=== PATIENT | female | born 1940 | race Caucasian/White ===

== ENCOUNTER → 2018-10-03 | Outpatient (CLI) | payer MEDICARE, BC ==
--- NOTE | 2018-10-03 13:13 | US ---
EXAMINATION TYPE: US carotid duplex BILAT DATE OF EXAM: 10/03/2018 COMPARISON: NONE CLINICAL HISTORY: I10 Hypertension. Lightheadedness x 40 years, TIA 2003 EXAM MEASUREMENTS: RIGHT: Peak Systolic Velocity (PSV) cm/sec ----- Right CCA: 44.7 ----- Right ICA: 110.8 ----- Right ECA: 40.7 ICA/CCA ratio: 2.5 RIGHT: End Diastole cm/sec ----- Right CCA: 12.1 ----- Right ICA: 40.3 ----- Right ECA: 5.8 LEFT: Peak Systolic Velocity (PSV) cm/sec ----- Left CCA: 53.5 ----- Left ICA: 64.3 ----- Left ECA: 102.1 mid ICA/CCA ratio: 1.2 LEFT: End Diastole cm/sec ----- Left CCA: 20.5 ----- Left ICA: 28.5 ----- Left ECA: 12.4 VERTEBRALS (direction of flow): Right Vertebral: Antegrade Left Vertebral: Antegrade Rhythm: Normal Moderate, mixed wall plaque is noted at bilateral carotid bifurcation, but PSV is wnl bilaterally. To rtuous proximal CCA is noted bilaterally. Incidental finding of left thyroid nodule is noted and nodule size = 2.3 x 1.7 x 1.6cm. Flores scale images show moderate to severe plaque eccentrically of bilateral carotid bulb level, right greater than left. The peak systolic velocity measurement within normal limits in right internal car otid artery but there is abnormal ratio with increased end diastolic velocity. IMPRESSION: 1. Moderate to severe plaque bilaterally, right greater than left, cannot exclude hemodynamically si gnificant stenosis 50-69% on the right. Consider CTA or MRA of the neck to further evaluate. 2. Incidental greater than 1 cm solid left thyroid nodule. Advise dedicated thyroid ultrasound to com pletely evaluate and characterize if this is not known finding. Criteria for Assigning % of Stenosis / Diameter reduction (Estimation based on the indirect measurements of the internal carotid artery velocities (ICA PSV). 1. Normal (no stenosis)=ICA PSV < 125 cm/s: ratio < 2.0: ICA EDV<40 cm/s. 2. Less than 50% stenosis=ICA PSV < 125 cm/s: ratio < 2.0: ICA EDV<40 cm/s. 3. 50 to 69% stenosis=ICA PSV of 125 to 230 cm/s: ration 2.0 ? 4.0: ICA EDV 40-100 cm/s. 4. Greater than 70% stenosis to near occlusion= ICA PSV > 230 cm/s: ratio > 4.0: ICA EDV > 100 cm/s. 5. Near occlusion= ICA PSV velocities may be low or undetectable: variable ratio and ICA EDV. 6. Total occlusion=unable to detect flow.
--- NOTE | 2018-10-03 14:38 | MM ---
Reason for exam: screening (asymptomatic). Last mammogram was performed 1 year and 6 months ago. History: Benign excisional biopsy of the left breast, 1988. Physical Findings: A clinical breast exam by your physician is recommended on an annual basis and results should be correlated with mammographic findings. MG 3D Screening Mammo W/Cad Bilateral CC and MLO view(s) were taken. Prior study comparison: March 28, 2017, mammogram. February 08, 2016, mammogram. There are scattered fibroglandular densities. There are benign appearing round vascular dystrophic calcifications bilaterally. There is chronic nodularity in the left breast. There is no discrete abnormality. ASSESSMENT: Benign, BI-RAD 2 RECOMMENDATION: Routine screening mammogram of both breasts in 1 year.
== END | disposition home or self-care (01) ==
LOC: RADMAMWWP 10:40
PROVIDERS: ATTEND General Practice
DX: Z12.31 Encounter for screening mammogram for malignant neoplasm of breast (principal); I65.23 Occlusion and stenosis of bilateral carotid arteries; I10 Essential (primary) hypertension
CPT/HCPCS: 77063; 77067; 93880

== ENCOUNTER → 2018-11-15 | Outpatient (CLI) | payer MEDICARE, BC ==
--- NOTE | 2018-11-15 11:01 | US ---
EXAMINATION TYPE: US thyroid st tissue head/neck DATE OF EXAM: 11/15/2018 COMPARISON: NONE CLINICAL HISTORY: E04.1 Thyroid Nodule. nodule seen on recent carotid exam GLAND SIZE: Right Lobe: 3.7 x 1.3 x 1.9 cm Overall Parenchyma: homogenous Left Lobe: 4.2 x 1.7 x 1.9 cm Overall Parenchyma: heterogeneous Isthmus Thickness: 0.4 cm NODULES RIGHT: # of nodules measured on right: 0 LEFT: # of nodules measured on left: 1 1. 2.1 X 1.9 x 1.5 cm solid nodule at the mid pole with well-defined margins. This nodule is wider than tall and shows intranodular vascularity. 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 IMPRESSION: Nonspecific thyroid nodularity. Correlate clinically and with thyroid function testing. Consider tiss ue diagnosis if felt to be clinically indicated.
== END | disposition home or self-care (01) ==
LOC: RADUSWWP 10:19
PROVIDERS: ATTEND General Practice
DX: E04.1 Nontoxic single thyroid nodule (principal)
CPT/HCPCS: 76536

== ENCOUNTER 2023-02-04 19:10 | Emergency (ER) | payer MEDICARE, BC ==
--- NOTE | 2023-02-04 19:34 | ED ---
Lower Extremity Injury HPI - General Source: patient, RN notes reviewed <Fren Carter - Last Filed: 02/04/23 19:33> - General Source: patient, RN notes reviewed, old records reviewed <Bi Diehl - Last Filed: 02/05/23 00:57> - General Stated Complaint: right knee pain Time Seen by Provider: 02/04/23 19:33 - History of Present Illness Initial Comments: patient is an 82-year-old female presented ER via EMS with chief complaint of right knee pain. Patient reports she was in her bathroom and her knee gave out. Patient denies any fevers or chills. (Fern Carter) Patient is an 82-year-old female who presents emergency Department complaining of right knee pain. States she was walking in the bathroom when her right knee gave out. Denies hitting it. Denies hitting her head. Denies loss of consciousness. Was walking normally. No abnormal movements. Does walk with a cane at baseline. Has a history of arthritis in the knees. This medical history includes hypertension and diabetes. Presents for further evaluation at this time. Has a history of hip replacements. No hip pain. No other injuries. Currently complaining of knee pain to the entire right knee. Able to hold full extension. Able to flex.Patient originally evaluated as a quick note. (Bi Diehl) - Related Data Home Medications Medication Instructions Recorded Confirmed Enalapril [Vasotec] 10 mg PO BID 10/27/15 10/27/15 Insulin Glargine [Lantus Vial] 20 unit SQ QAM 10/27/15 10/27/15 Labetalol HCl [Trandate] 300 mg PO BID 10/27/15 10/27/15 NIFEdipine XL [Procardia XL] 30 mg PO BID 10/27/15 10/27/15 metFORMIN HCL [Glucophage] 1,000 mg PO BID 10/27/15 10/27/15 Previous Rx's Medication Instructions Recorded ALPRAZolam [Xanax] 0.25 mg PO BID PRN #30 tab 10/31/15 Hydrocodone/Acetaminophen [[place] 1 - 2 each PO Q6HR PRN #60 tab 10/31/15 5-325] Rivaroxaban [Xarelto] 10 mg PO DAILY #28 tab 09/04/16 Allergies Allergy/AdvReac Type Severity Reaction Status Date / Time Penicillins Allergy Unknown Verified 02/04/23 19:43 Sulfa (Sulfonamide Allergy Unknown Verified 02/04/23 19:43 Antibiotics) gluten AdvReac Diarrhea Verified 02/04/23 19:43 Review of Systems ROS Other: All systems not noted in ROS Statement are negative. <Fern Carter - Last Filed: 02/04/23 19:33> ROS Other: All systems not noted in ROS Statement are negative. <Bi Diehl - Last Filed: 02/05/23 00:57> ROS Statement: Those systems with pertinent positive or pertinent negative responses have been documented in the HPI. Review of Systems: CONST: Denies fever EYES: Denies blurry vision ENT: Denies nasal congestion C/V: Denies Chest pain RESP: Denies shortness of breath GI: Denies abdominal pain : Denies dysuria SKIN: Denies rash. MSK: Endorses right knee pain NEURO: Denies headache (Bi Diehl) Past Medical History Past Medical History: Diabetes Mellitus, Hypertension Additional Past Medical History / Comment(s): ARTHRITIS, SLEEP APNEA with CPAP, IBS History of Any Multi-Drug Resistant Organisms: None Reported Past Surgical History: Breast Surgery, Hysterectomy, Tonsillectomy Additional Past Surgical History / Comment(s): Benign tumer removed from breast Past Anesthesia/Blood Transfusion Reactions: No Reported Reaction Past Psychological History: No Psychological Hx Reported Past Alcohol Use History: None Reported Past Drug Use History: None Reported - Past Family History Father Family Medical History: Hypertension Sister(s) Family Medical History: Hypertension <Fern Carter - Last Filed: 02/04/23 19:33> General Exam <Fern Carter - Last Filed: 02/04/23 19:33> <Bi Diehl - Last Filed: 02/05/23 00:57> - General Exam Comments Initial Comments: Visual Physical Exam Vital signs reviewed General: Well-appearing, nontoxic, no acute distress. Head: Normocephalic, atraumatic Eyes: PERRLA, EOMI ENT: Airway patent Chest: Nonlabored breathing Skin: No visual rash, normal skin tone Neuro: Alert and oriented 3 Musculoskeletal: No gross abnormalities (Fern Carter) General: Appears in mild to moderate pain. HEAD: Normal with no signs of head trauma. EYES: PERRLA, EOMI, conjunctiva normal, no discharge. ENT: Hearing grossly intact, normal oropharynx. RESPIRATORY: Clear breath sounds bilaterally. No wheezes, rales, or rhonchi. C/V: Regular rate and rhythm. S1 and S2 auscultated, no edema, peripheral pulses 2+ and intact throughout ABD: Abd is soft, nontender, nondistended EXT: Tenderness palpation generalized over the right knee. Able to hold knee in full extension. Also flex the knee however not full flexion due to pain. Bilateral symmetrical edema of lower extremities which patient states is chronic. No obvious deformities present. Neurovascular intact throughout. SKIN: No rashes or lesions observed on exposed skin. NEURO: Alert and oriented x 4. (Bi Diehl) Course Vital Signs 02/04/23 02/04/23 02/05/23 19:41 22:51 00:11 Temperature 98 F Pulse Rate 65 58 L 57 L Respiratory 18 18 18 Rate Blood Pressure 207/83 211/78 203/80 O2 Sat by Pulse 98 96 95 Oximetry 02/05/23 00:54 Temperature Pulse Rate 68 Respiratory 16 Rate Blood Pressure 181/83 O2 Sat by Pulse 96 Oximetry Medical Decision Making <Fern Carter - Last Filed: 02/04/23 19:33> <Bi Diehl - Last Filed: 02/05/23 00:57> - Medical Decision Making I performed the quick note portion of the exam. Electronically signed by Fern Carter PA-C (Fern Carter) Was pt. sent in by a medical professional or institution ([facility] Segal, TOOLMAKER HELPER, urgent care, hospital, or [facility]...) When possible be specific @ -No Did you speak to anyone other than the patient for history (EMS, parent, family, police, friend...)? What history was obtained from this source @ -No Did you review nursing and triage notes (agree or disagree)? Why? @ -I reviewed and agree with nursing and triage notes Were old charts reviewed (outside hosp., previous admission, EMS record, old EKG, old radiological studies, urgent care reports/EKG's, [facility] records)? Report findings @ -No old charts were reviewed Differential Diagnosis (chest pain, altered mental status, abdominal pain women, abdominal pain men, vaginal bleeding, weakness, fever, dyspnea, syncope, headache, dizziness, GI bleed, back pain, seizure, CVA, palpatations, mental health, musculoskeletal)? @ -Differential Musculoskeletal Muscular strain, contusion, ligament sprain, fracture, arthritis, septic arthritis, bursitis, cellulitis, muscle spasm, nerve compression, DVT, arterial occlusion, herpes zoster, electrolyte abnormality, tumor.... This is not meant to be in all inclusive list EKG interpreted by me (3pts min.). @ -As above X-rays interpreted by me (1pt min.). @ -X-ray reveals arthritis but no obvious deformity of the right knee. Etiology concern for possible medial meniscus injury. CT interpreted by me (1pt min.). @ -CT reveals no obvious injury or finding. Small joint effusion present. U/S interpreted by me (1pt. min.). @ -None done What testing was considered but not performed or refused? (CT, X-rays, U/S, labs)? Why? @ -None What meds were considered but not given or refused? Why? @ -None Did you discuss the management of the patient with other professionals (professionals i.e. , PA, TOOLMAKER HELPER, lab, RT, psych nurse, social work professor, drilling machine operator, teacher, ambulance officer, caser up)? Give summary @ -No Was smoking cessation discussed for >3mins.? @ -No Was critical care preformed (if so, how long)? @ -No Were there social determinants of health that impacted care today? How? (Homelessness, low income, unemployed, alcoholism, drug addiction, kent sportation, low edu. Level, literacy, decrease access to med. care, retirement, rehab)? @ -No Was there de-escalation of care discussed even if they declined (Discuss DNR or withdrawal of care, Hospice)? DNR status @ -No What co-morbidities impacted this encounter? (DM, HTN, Smoking, COPD, CAD, Cancer, CVA, ARF, Chemo, Hep., AIDS, mental health diagnosis, sleep apnea, morbid obesity)? @ -None Was patient admitted / discharged? Hospital course, mention meds given and route, prescriptions, significant lab abnormalities, going to OR and other pertinent info. @ -Based on patient's presentation and physical exam, I'm concerned for right knee injury. Originally seen as a quick note. Exam is relatively unremarkable. X-ray shows possible meniscus injury but difficult to evaluate on x-ray. Arthritis also present. No obvious other injury. Vital signs remarkable for hypertension however patient did not take her evening hypertensive medications. See she did just take them prior to me evaluating the patient when she is placed in a room. We'll continue to monitor. Has no other symptoms at this time. Patient when ambulating from the wheelchair to the bed was unable to place any weight on the right knee. She can hold it in full extension. I did discuss options with her and we decided to obtain CT imaging of the right knee to rule out any obvious occult fracture injury such as tibial plateau fracture. She was in agreement this plan. She'll be given IV analgesia medications. We will monitor her blood pressure as well. CT imaging shows no obvious fracture that is call or injury. I updated the patient. Remains hypertensive at this time. Patient is unconcerned by that she states this is chronic for her. I did recommend we attempt a dose of hydralazine to improve and she was in agreement with this plan. She also be given a knee immobilizer for knee. She follows up with Dr. Munoz of orthopedics already and I recommended close follow-up. She was in agreement with this plan. She will be given a starter pack of Tylenol 3's. Weight-bear as tolerated. Likely knee sprain as a diagnosis.Patient already has a walker at home and does not require prescription for walker or crutches. Patient's blood pressure did improve. She'll be discharged home at this time. I instructed the patient to follow up with their PCP in the next 1-3 days. I explained that the patient should return to the emergency department if they experience any worsening symptoms. Strict return precautions were discussed with the patient. The patient expressed understanding of these instructions. I answered all questions that the patient had. The patient was discharged home in fair condition with their prescriptions and follow up information. Undiagnosed new problem with uncertain prognosis? @ -No Drug Therapy requiring intensive monitoring for toxicity (Heparin, Nitro, Insulin, Cardizem)? @ -No Were any procedures done? @ -No Diagnosis/symptom? @ -Right knee pain, right knee strain, asymptomatic hypertension Acute, or Chronic, or Acute on Chronic? @ -Acute Uncomplicated (without systemic symptoms) or Complicated (systemic symptoms)? @ -Complicated Side effects of treatment? @ -none Exacerbation, Progression, or Severe Exacerbation] @ -no Poses a threat to life or bodily function? @ -no (Bi Diehl) Disposition <Fern Carter - Last Filed: 02/04/23 19:33> Is patient prescribed a controlled substance at d/c from ED?: No Time of Disposition: 00:52 <Bi Diehl - Last Filed: 02/05/23 00:57> Clinical Impression: Right knee pain, Strain of right knee, Asymptomatic hypertension Disposition: HOME SELF-CARE Condition: Good Instructions (If sedation given, give patient instructions): Knee Sprain (ED), Knee Pain (ED) Referrals: Linnette Rodriguez NPC [REFERRING] - 1-2 days Anoop Munoz MD [STAFF PHYSICIAN] - 1-2 days
[2023-02-04 19:55] VITALS: TEMP 98
--- NOTE | 2023-02-04 21:31 | XR ---
EXAMINATION TYPE: XR knee complete 3 views RT DATE OF EXAM: 02/04/2023 COMPARISON: NONE HISTORY: 82-year-old female with right knee pain after injury TECHNIQUE: 3 views FINDINGS: Moderate degenerative thinning of cartilage and joint space in the medial compartment. Ther e appears to be meniscal chondrocalcinosis. Possible extruded body of the medial meniscus. Osteopenia . No sizable joint effusion. Extensor mechanism and appears intact. No acute fracture, subluxation, d islocation. There appears to be a healed oblique fracture of the proximal fibular shaft. IMPRESSION: 1. Moderate medial compartmental OA. 2. Underlying meniscal chondrocalcinosis. The calcified body of the medial meniscus may be extruded s uggesting the possibility of an underlying medial meniscal tear. 3. Old healed or nearly healed fracture of the proximal fibular shaft. Clinically correlate. No defin ite acute osseous abnormality seen.
[2023-02-04] MEDS ORDERED: MORPHINE SULFATE 4 MG/ML SYRINGE IVP STA (22:51)
--- NOTE | 2023-02-05 00:17 | CT ---
EXAM: CT Right Lower Extremity Without Intravenous Contrast, Knee CLINICAL HISTORY: ITS.REASON CT Reason: right knee pain, cannot bear weight TECHNIQUE: Axial computed tomography images of the right knee without intravenous contrast. CTDI is 4.8 mGy and DLP is 154.3 mGy-cm. This CT exam was performed using one or more of the following dose reduction techniques: automated exposure control, adjustment of the mA and/or kV according to patient size, and/or use of iterative reconstruction technique. COMPARISON: No relevant prior studies available. FINDINGS: Bones/joints: Osseous demineralization. Mildly joint effusion. No acute fracture or dislocation. Old, healed fracture of the proximal fibula diaphysis. Soft tissues: Unremarkable. Other findings: Intact extensor mechanism. IMPRESSION: No acute findings in the right knee.
[2023-02-05] MEDS ORDERED: hydrALAZINE HCL 20 MG/ML 1 ML VIAL IVP STA (00:33)
[2023-02-05] MEDS ORDERED: ACET/COD 300 MG/30 MG STARTER PACK 6 TAB BTL PO STA (00:34)
[2023-02-05 01:03] VITALS: BP 181/83; PULSE 68; RESP 16
== END 2023-02-05 01:16 | disposition home or self-care (01) ==
LOC: EC 19:10
DX: S86.911A Strain of unspecified muscle(s) and tendon(s) at lower leg level, right leg, initial encounter (principal); I10 Essential (primary) hypertension; E11.9 Type 2 diabetes mellitus without complications; G47.30 Sleep apnea, unspecified; Z79.84 Long term (current) use of oral hypoglycemic drugs; Z79.4 Long term (current) use of insulin; Z88.0 Allergy status to penicillin; Z88.2 Allergy status to sulfonamides; Z79.899 Other long term (current) drug therapy; X58.XXXA Exposure to other specified factors, initial encounter; Y93.01 Activity, walking, marching and hiking; Y92.002 Bathroom of unspecified non-institutional (private) residence as the place of occurrence of the external cause
CPT/HCPCS: 73562; 73700; 99284; 96374; 96375; J2270